=== PATIENT | male | born 1955 | race Caucasian/White ===

== ENCOUNTER → 2018-05-25 | Outpatient (CLI) | payer OTHER ==
--- NOTE | 2018-05-25 16:16 | KCIC ---
CT LOW DOSE LUNG SCREENING Indication: Smoker for 45 years Technique: Noncontrast CT imaging was performed of the chest as per low dose screening protocol, multiplanar reconstruction images submitted. One or more of the following individualized dose reduction techniques were utilized for this examination: 1. Automated exposure control 2. Adjustment of the mA and/or kV according to patient size 3. Use of iterative reconstruction technique. Comparison: February 28, 2015 Findings: There is again paraseptal and centrilobular emphysema. There is no new pulmonary nodularity. Thoracic aortic caliber measures about 3.7 cm. No new significantly enlarged nodes are identified of the chest. There is degenerative disc disease and spondylosis greatest T10-11. Major airways are patent. There is no pleural or pericardial effusion, pneumothorax, infiltrate. There is some coronary calcification. IMPRESSION: 1. There is again emphysema, no new pulmonary nodularity. Lung RADS category 1, annual screening with low-dose CT in 12 months recommended. 2. There is some coronary calcification. Electronically signed by: Tarun Alejo MD (05/25/2018 4:13 PM) [id number]
== END | disposition home or self-care (01) ==
LOC: KCIC CT 15:12
PROVIDERS: ATTEND Family Medicine
DX: Z12.2 Encounter for screening for malignant neoplasm of respiratory organs (principal); J43.2 Centrilobular emphysema; I25.10 Atherosclerotic heart disease of native coronary artery without angina pectoris; M51.34 Other intervertebral disc degeneration, thoracic region; M47.894 Other spondylosis, thoracic region; I10 Essential (primary) hypertension; Z79.01 Long term (current) use of anticoagulants; Z87.891 Personal history of nicotine dependence
CPT/HCPCS: G0297